=== PATIENT | male | born 1995 | race Two or more races ===

== ENCOUNTER 2017-09-20 19:37 | Emergency (ER) | payer MEDICAID ==
[~2017-09-20] VITALS: Ht 160 cm; Wt 53.6 kg
[~2017-09-20 19:37] MED LIST: ONDA4TAB12 PO
[2017-09-20 19:41] VITALS: BP 125/69
== END 2017-09-20 20:44 | disposition home or self-care (01) ==
LOC: ER 19:38
DX: S90.32XA Contusion of left foot, initial encounter (principal); F12.10 Cannabis abuse, uncomplicated; W52.XXXA Crushed, pushed or stepped on by crowd or human stampede, initial encounter; Y93.89 Activity, other specified; Y92.89 Other specified places as the place of occurrence of the external cause; Y99.8 Other external cause status
CPT/HCPCS: 73630; 99284

== ENCOUNTER 2018-07-16 21:16 | Emergency (ER) | payer MEDICAID ==
[~2018-07-16] VITALS: Ht 162.6 cm; Wt 57.0 kg
[2018-07-16 22:15] VITALS: BP 124/72
== END 2018-07-16 22:32 | disposition home or self-care (01) ==
LOC: ER 21:17
DX: S62.397A Other fracture of fifth metacarpal bone, left hand, initial encounter for closed fracture (principal); F12.90 Cannabis use, unspecified, uncomplicated; Z79.899 Other long term (current) drug therapy; W22.8XXA Striking against or struck by other objects, initial encounter; Y93.89 Activity, other specified; Y92.89 Other specified places as the place of occurrence of the external cause; Y99.8 Other external cause status
CPT/HCPCS: 29125; 73130; 99283

== ENCOUNTER 2018-08-18 10:41 | Outpatient (CLI) | payer MEDICAID ==
[2018-08-18 10:36] VITALS: BP 114/70
== END 2018-08-18 11:22 | disposition home or self-care (01) ==
LOC: ORTHO 10:41
PROVIDERS: ATTEND Nurse Practitioner Family
DX: S62.337A Displaced fracture of neck of fifth metacarpal bone, left hand, initial encounter for closed fracture (principal); F12.90 Cannabis use, unspecified, uncomplicated; X58.XXXA Exposure to other specified factors, initial encounter; Y93.89 Activity, other specified; Y92.89 Other specified places as the place of occurrence of the external cause; Y99.8 Other external cause status
CPT/HCPCS: 73130; 99213

== ENCOUNTER 2018-09-08 11:46 | Outpatient (CLI) | payer MEDICAID ==
[2018-09-08 11:48] VITALS: BP 115/64
== END 2018-09-08 12:09 | disposition home or self-care (01) ==
LOC: ORTHO 11:46
PROVIDERS: ATTEND Nurse Practitioner Family
DX: S62.337D Displaced fracture of neck of fifth metacarpal bone, left hand, subsequent encounter for fracture with routine healing (principal); F17.210 Nicotine dependence, cigarettes, uncomplicated; X58.XXXD Exposure to other specified factors, subsequent encounter
CPT/HCPCS: 73130; 99213

== ENCOUNTER 2021-10-26 00:23 | Emergency (ER) | payer MEDICAID ==
[~2021-10-26] VITALS: Ht 162.6 cm; Wt 54.5 kg
[2021-10-26 00:25] VITALS: BP 132/99
--- NOTE | 2021-10-26 00:32 | NUR ---
PT REPORTS THAT HE IS NON-BINARY. PT REPORTS PREFERED PRONOUNS "HE,HIM".
== END 2021-10-26 02:19 | disposition left against medical advice (07) ==
LOC: EEVIPCON 00:23 → ER 00:23
DX: R45.851 Suicidal ideations (principal); Z53.21 Procedure and treatment not carried out due to patient leaving prior to being seen by health care provider

== ENCOUNTER 2021-12-21 11:55 | Emergency (ER) | payer MEDICAID ==
[~2021-12-21] VITALS: Ht 160 cm; Wt 56.8 kg
[2021-12-21 12:42] VITALS: BP_SYST 114
== END 2021-12-21 15:16 | disposition left against medical advice (07) ==
LOC: ER 11:56
DX: K61.0 Anal abscess (principal); F12.90 Cannabis use, unspecified, uncomplicated; Z72.89 Other problems related to lifestyle; Z56.0 Unemployment, unspecified; Z79.899 Other long term (current) drug therapy
CPT/HCPCS: 99281

== ENCOUNTER 2022-02-27 08:48 | Emergency (ER) | payer MEDICAID ==
[~2022-02-27] VITALS: Ht 160 cm; Wt 59.0 kg
[2022-02-27 09:02] VITALS: BP 122/85
[2022-02-27] MEDS ORDERED: ibuprofen tablet 400 MG TABLET PO ONE (09:20)
== END 2022-02-27 10:24 | disposition home or self-care (01) ==
LOC: ER 08:49
DX: S90.01XD Contusion of right ankle, subsequent encounter (principal); F12.10 Cannabis abuse, uncomplicated; Z56.0 Unemployment, unspecified; Z79.899 Other long term (current) drug therapy; W18.39XD Other fall on same level, subsequent encounter
CPT/HCPCS: 73590; 99284